=== PATIENT | female | born 1970 | race Caucasian/White ===

== ENCOUNTER 2017-05-08 09:10 | Emergency (ER) | payer OTHER ==
[~2017-05-08] VITALS: Ht 5451.6 cm; Wt 90.4 kg
[2017-05-08 10:28] LABS: BASOPHILS % (AUTO) 0.7 % (0-1); EOSINOPHILS # (AUTO) 0.1 X10'3 (0-0.9); EOSINOPHILS % (AUTO) 1.9 % (0-6); HEMATOCRIT 41.1 % (35.0-45.0); HEMOGLOBIN 14.3 g/dl (12.0-16.0); LYMPHOCYTES # (AUTO) 2.4 X10'3 (1.1-4.8); LYMPHOCYTES % (AUTO) 42.7 % (21-51); MEAN CORPUSCULAR HEMOGLOBIN 30.7 PG (27.0-31.0); MEAN CORPUSCULAR HGB CONC 34.8 % (33.0-36.5); MEAN CORPUSCULAR VOLUME 88.1 FL (78-98); MEAN PLATELET VOLUME 8.5 FL (7.4-10.4); MONOCYTES # (AUTO) 0.4 X10'3 (0-0.9); MONOCYTES % (AUTO) 6.9 % (2-12); NEUTROPHILS # (AUTO) 2.7 X10'3 (1.8-7.7); NEUTROPHILS % (AUTO) 47.8 % (42-75); PLATELET COUNT 225 X10'3 (140-440); RED BLOOD COUNT 4.66 X10'6 (4.20-5.60); RED CELL DISTRIBUTION WIDTH 16.6 % (11.5-14.5); WHITE BLOOD COUNT 5.6 X10'3 (4.5-11.0)
[2017-05-08 10:50] LABS: ALBUMIN 3.8 G/DL (3.4-5.0); ANION GAP 11 (8-16); BLOOD UREA NITROGEN 14 MG/DL (7-18); BUN/CREATININE RATIO 27.5 (6.6-38.0); CALCIUM 8.8 MG/DL (8.5-10.1); CHLORIDE 109 MMOL/L (99-107); CREATININE 0.51 MG/DL (0.40-0.90); GLUCOSE 80 MG/DL (70-104); POTASSIUM 4.2 MMOL/L (3.5-5.1); SODIUM 149 MMOL/L (135-145); TOTAL CARBON DIOXIDE 28.7 MMOL/L (24-32); eGFR > 90 ML/MIN
[2017-05-08 11:19] LABS: ETHANOL 0.293 GM/DL (0.0-0.010)
[2017-05-08] MEDS ORDERED: HYDR-3686 PO (11:52)
[2017-05-08] MEDS ORDERED: LEVO100T9 PO (11:53)
[2017-05-08] MEDS ORDERED: NAPR-56 PO (11:55)
[2017-05-08] MEDS ORDERED: PARO20TA6 PO (11:56)
[2017-05-08] MEDS ORDERED: OMEP40CA37 PO (11:59)
[2017-05-08] MEDS ORDERED: MONT10TA24 PO (12:04)
[2017-05-08] MEDS ORDERED: ACET-812 PO (12:04)
[2017-05-08] MEDS ORDERED: CARB100T7 PO (12:05)
[2017-05-08] MEDS ORDERED: CEPH500C2 PO (12:06)
[2017-05-08] MEDS ORDERED: POTA2TAB17 (12:07)
[2017-05-08] MEDS ORDERED: CHOL5000 PO (12:08)
[2017-05-08] MEDS ORDERED: NAPH15DR8 (12:09)
[2017-05-08 13:14] LABS: CLARITY,URINE SLIGHTLY CLOUDY (Clear); COLOR,URINE STRAW (Yellow); GLUCOSE, URINE NEGATIVE (Neg); KETONES,URINE NEGATIVE (Neg); LEUKOCYTE ESTERASE ,URINE NEGATIVE (Neg); NITRITES, URINE NEGATIVE (Neg); OCCULT BLOOD,URINE NEGATIVE (Neg); PH,URINE 6.5 (4.8-8.0); PROTEIN,URINE NEGATIVE (Neg); URINE HCG NEGATIVE (NEG); UROBILINOGEN,URINE 0.2 E.U/dL (0.2-1.0)
[2017-05-08 13:17] LABS: UA COLLECTION TYPE CLN CATCH MIDSTREAM
[2017-05-08 13:31] LABS: URINE AMPHETAMINE SCREEN NEGATIVE (Neg); URINE BARBITUATE SCREEN NEGATIVE (Neg); URINE BENZODIAZEPINES SCREEN NEGATIVE (Neg); URINE CANNABINOID SCREEN NEGATIVE (Neg); URINE COCAINE SCREEN NEGATIVE (Neg); URINE METHADONE SCREEN NEGATIVE (Neg); URINE OPIATE SCREEN NEGATIVE (Neg); URINE PHENCYCLIDINE SCREEN NEGATIVE (Neg)
[2017-05-08 13:37] LABS: BACTERIA,URINE FEW /HPF (Neg); RBC,URINE 0-2 /HPF (0-2); SQUAMOUS EPITHELIAL CELL,UR MODERATE /LPF (FEW); WBC,URINE 0-4 /HPF (0-4)
[2017-05-08] MEDS ORDERED: ondansetron 4mg rapidly disintigrating tab PO ONE (17:30)
[2017-05-08] MEDS ORDERED: folic acid 1mg tablet PO ONE (17:45)
[2017-05-08] MEDS ORDERED: thiamine 100mg tablet PO SCH (17:45)
[2017-05-08] MEDS: LORazepam 1 MG tablet PO PRN (18:31)
[2017-05-08] MEDS ORDERED: PARoxetine 20mg tablet PO SCH (21:00)
[2017-05-08] MEDS ORDERED: carBAMazepine 100mg chewable tablet PO SCH (21:00)
[2017-05-09] MEDS ORDERED: acetaminophen 325mg tablet PO ONE (03:45)
[2017-05-09] MEDS: LORazepam 1 MG tablet PO PRN ×2 (03:59→09:56)
[2017-05-09] MEDS ORDERED: montelukast 10mg tablet PO SCH (08:00)
[2017-05-09] MEDS ORDERED: levoTHYROXINE 100mcg tablet PO SCH (08:00)
[2017-05-09] MEDS ORDERED: PARoxetine 20mg tablet PO SCH (08:26)
[2017-05-09] MEDS ORDERED: carBAMazepine 100mg chewable tablet PO SCH (08:55)
[2017-05-09] MEDS ORDERED: pantoprazole 40mg Tablet.DR PO SCH (09:00)
[2017-05-09] MEDS ORDERED: naproxen 500mg tablet PO SCH (09:00)
[2017-05-09 12:37] VITALS: BP 99/56
[2017-05-09] MEDS ORDERED: acetaminophen 325mg tablet PO SCH (14:00)
== END 2017-05-09 12:39 | disposition home or self-care (01) ==
LOC: ER 09:11
DX: R45.851 Suicidal ideations (principal); F32.9 Major depressive disorder, single episode, unspecified; Z87.11 Personal history of peptic ulcer disease; Z98.890 Other specified postprocedural states; Z79.899 Other long term (current) drug therapy
CPT/HCPCS: 36415; 80048; 80156; 80305; 80320; 81001; 81025; 84443; 85025; 99284; 99285

== ENCOUNTER 2017-05-29 23:28 | Emergency (ER) | payer OTHER ==
[~2017-05-29] VITALS: Ht 165.1 cm; Wt 90.0 kg
[~2017-05-29 23:28] MED LIST: ACET-812 PO; CARB100T7 PO; CEPH500C2 PO; CHOL5000 PO; HYDR-3686 PO; LEVO100T9 PO; MONT10TA24 PO; NAPH15DR8; NAPR-56 PO; OMEP40CA37 PO; PARO20TA6 PO; POTA2TAB17
[2017-05-30] LABS: BASOPHILS % (AUTO) 0.3 % (0-1); EOSINOPHILS # (AUTO) 0.2 X10'3 (0-0.9); EOSINOPHILS % (AUTO) 2.2 % (0-6); HEMATOCRIT 40.9 % (35.0-45.0); HEMOGLOBIN 14.1 g/dl (12.0-16.0); LYMPHOCYTES % (AUTO) 40.7 % (21-51); MEAN CORPUSCULAR HEMOGLOBIN 30.2 PG (27.0-31.0); MEAN CORPUSCULAR HGB CONC 34.4 % (33.0-36.5); MEAN CORPUSCULAR VOLUME 87.7 FL (78-98); MEAN PLATELET VOLUME 8.9 FL (7.4-10.4); MONOCYTES # (AUTO) 0.5 X10'3 (0-0.9); MONOCYTES % (AUTO) 6.7 % (2-12); NEUTROPHILS # (AUTO) 3.7 X10'3 (1.8-7.7); NEUTROPHILS % (AUTO) 50.1 % (42-75); PLATELET COUNT 205 X10'3 (140-440); RED BLOOD COUNT 4.66 X10'6 (4.20-5.60); RED CELL DISTRIBUTION WIDTH 16.8 % (11.5-14.5); WHITE BLOOD COUNT 7.3 X10'3 (4.5-11.0)
[2017-05-30 00:01] LABS: URINE HCG NEGATIVE (NEG)
[2017-05-30 00:12] LABS: URINE AMPHETAMINE SCREEN NEGATIVE (Neg); URINE BARBITUATE SCREEN NEGATIVE (Neg); URINE BENZODIAZEPINES SCREEN NEGATIVE (Neg); URINE CANNABINOID SCREEN NEGATIVE (Neg); URINE COCAINE SCREEN NEGATIVE (Neg); URINE METHADONE SCREEN NEGATIVE (Neg); URINE OPIATE SCREEN NEGATIVE (Neg); URINE PHENCYCLIDINE SCREEN NEGATIVE (Neg)
[2017-05-30 00:13] LABS: ALANINE AMINOTRANSFERASE 23 U/L (12-78); ALBUMIN/GLOBULIN RATIO 1.1 (1.1-1.5); ALKALINE PHOSPHATASE 92 IU/L (46-116); ANION GAP 11 (8-16); ASPARTATE AMINO TRANSFERASE 17 U/L (10-37); BILIRUBIN,TOTAL 0.2 MG/DL (0.1-1.0); BLOOD UREA NITROGEN 12 MG/DL (7-18); BUN/CREATININE RATIO 19.7 (6.6-38.0); CALCIUM 9.2 MG/DL (8.5-10.1); CHLORIDE 105 MMOL/L (99-107); CREATININE 0.61 MG/DL (0.40-0.90); ETHANOL 0.159 GM/DL (0.0-0.010); GLUCOSE 98 MG/DL (70-104); POTASSIUM 4.2 MMOL/L (3.5-5.1); SODIUM 141 MMOL/L (135-145); TOTAL CARBON DIOXIDE 25.2 MMOL/L (24-32); TOTAL PROTEIN 7.8 G/DL (6.4-8.2); eGFR > 90 ML/MIN
[2017-05-30] MEDS ORDERED: naphazoline/pheniramine eye 1 DROP BOTTLE EACHEYE PRN (02:05)
[2017-05-30] MEDS ORDERED: acetaminophen 325mg tablet PO PRN (06:35)
[2017-05-30] MEDS ORDERED: naproxen 500mg tablet PO SCH (07:30)
[2017-05-30] MEDS: pantoprazole 40mg Tablet.DR PO SCH ×2 (07:58→12:18)
[2017-05-30] MEDS ORDERED: montelukast 10mg tablet PO SCH (08:00)
[2017-05-30] MEDS ORDERED: carBAMazepine 100mg chewable tablet PO SCH (08:00)
[2017-05-30] MEDS ORDERED: PARoxetine 20mg tablet PO SCH (08:00)
[2017-05-30] MEDS ORDERED: non-formulary drug (Acetaminophen (Tylenol Extra Strength) 2 TABLET) PO SCH (08:00)
[2017-05-30] MEDS ORDERED: levoTHYROXINE 100mcg tablet PO SCH (08:00)
[2017-05-30] MEDS ORDERED: hydrOXYzine 10 MG tablet PO PRN (08:10)
[2017-05-30] MEDS ORDERED: ondansetron 4mg rapidly disintigrating tab PO PRN (08:10)
[2017-05-30 14:08] VITALS: BP 97/53
[2017-05-30] MEDS ORDERED: hydrOXYzine 25 MG tablet PO SCH (21:00)
== END 2017-05-30 12:45 | disposition home or self-care (01) ==
LOC: ER 23:29
DX: F32.9 Major depressive disorder, single episode, unspecified (principal); F10.129 Alcohol abuse with intoxication, unspecified; Z98.890 Other specified postprocedural states; Z79.899 Other long term (current) drug therapy
CPT/HCPCS: 36415; 80053; 80305; 80320; 81025; 85025; 99285

== ENCOUNTER 2019-01-05 17:21 | Emergency (ER) | payer MEDICAID ==
[~2019-01-05] VITALS: Ht 165.1 cm; Wt 68.0 kg
[~2019-01-05 17:21] MED LIST changes: -CEPH500C2 PO; -CHOL5000 PO; +OMEP40CA13 PO; -OMEP40CA37 PO; -POTA2TAB17
[2019-01-05] MEDS ORDERED: normal saline 1000ML IV soln IV ONE (17:30)
[2019-01-05] MEDS ORDERED: LORazepam 2 mg/ml vial IV ONE (17:30)
[2019-01-05] MEDS ORDERED: thiamine 100mg/ml 2ml inj. IV ONE (17:35)
[2019-01-05] MEDS ORDERED: folic acid 1mg/0.2ml inj IV ONE (17:35)
[2019-01-05 18:10] LABS: ALANINE AMINOTRANSFERASE 24 U/L (12-78); ALBUMIN/GLOBULIN RATIO 0.9 (1.1-1.5); ALKALINE PHOSPHATASE 103 IU/L (46-116); ANION GAP 9 (8-16); ASPARTATE AMINO TRANSFERASE 34 U/L (10-37); BILIRUBIN,TOTAL 0.6 MG/DL (0.1-1.0); BLOOD UREA NITROGEN 18 MG/DL (7-18); BUN/CREATININE RATIO 20.5 (6.6-38.0); CALCIUM 9.5 MG/DL (8.5-10.1); CHLORIDE 94 MMOL/L (99-107); CREATININE 0.88 MG/DL (0.40-0.90); GLUCOSE 100 MG/DL (70-104); SODIUM 139 MMOL/L (135-145); TOTAL CARBON DIOXIDE 36.4 MMOL/L (24-32); TOTAL PROTEIN 6.4 G/DL (6.4-8.2); eGFR 69 ML/MIN
[2019-01-05 18:12] LABS: POTASSIUM 2.8 MMOL/L (3.5-5.1)
[2019-01-05 18:13] LABS: ETHANOL < 0.010 GM/DL (0.0-0.010)
[2019-01-05] MEDS ORDERED: potassium Cl 20 mEq SR tablet PO STA (18:19)
[2019-01-05] MEDS ORDERED: magnesium 2GM in 50ml NS 50 ML IV ONE (18:20)
[2019-01-05 18:32] LABS: BASOPHILS % (AUTO) 0.6 % (0-1); EOSINOPHILS % (AUTO) 0.4 % (0-6); LYMPHOCYTES # (AUTO) 1.3 X10'3 (1.1-4.8); LYMPHOCYTES % (AUTO) 38.4 % (21-51); MEAN CORPUSCULAR HEMOGLOBIN 34.7 PG (27.0-31.0); MEAN CORPUSCULAR HGB CONC 35.1 g/dL (33.0-36.5); MEAN CORPUSCULAR VOLUME 98.8 FL (78-98); MEAN PLATELET VOLUME 8.7 FL (7.4-10.4); MONOCYTES # (AUTO) 0.9 X10'3 (0-0.9); NEUTROPHILS # (AUTO) 1.1 X10'3 (1.8-7.7); NEUTROPHILS % (AUTO) 33.6 % (42-75); PLATELET COUNT 228 X10'3 (140-440); RED BLOOD COUNT 3.75 X10'6 (4.20-5.60); RED CELL DISTRIBUTION WIDTH 15.9 % (11.5-14.5); WHITE BLOOD COUNT 3.4 X10'3 (4.5-11.0)
[2019-01-05 19:10] LABS: TOTAL CELLS COUNTED 100
[2019-01-05 19:11] LABS: STOMATOCYTES FEW
[2019-01-05 19:12] LABS: GIANT PLATELET FEW; POLYCHROMASIA 1+
[2019-01-05] MEDS ORDERED: LORA-269 PO (19:19)
[2019-01-05] MEDS ORDERED: GABA300C PO (19:19)
--- NOTE | 2019-01-05 19:29 | NUR ---
Pt's magnesium is infusing at this time. Pt reports pain is unchanged and is asking for something to treat her dizziness.
--- NOTE | 2019-01-05 19:58 | NUR ---
Break RN: Checked on patient, Pt states she is still not feeling well. Pt states she continues to be dizzy. Pt had low BP while resting on her side on the gurney. Pt moved to supine position and BP re-taken. Pt BP was 107/50 in supine position. Provider informed of patient condition and order obtained to bolus Pt with another liter of NS. Mag infusion still in process.
[2019-01-05 20:06] LABS: PLATELET ESTIMATE NORMAL
[2019-01-05] MEDS ORDERED: normal saline 1000ml 1,000 ML IV ONE (20:55)
--- NOTE | 2019-01-05 21:49 | NUR ---
Attempted to get the patient to sit up and food offered in preparation for discharge. Pt stated "I can't be discharged! I can't walk and that is why I am here." Pt explained the provider feels she is stable for discharge to home. She asked if she can receive another bag of IV fluids.
[2019-01-05] MEDS ORDERED: normal saline 1000ml 1,000 ML IVB ONE (22:08)
--- NOTE | 2019-01-05 22:40 | NUR ---
Pt's blood pressure remains low after a fourth liter of NSS infusion bolus. Pt reports bilateral side pain that is 9/10 and has attempted to void but reports unable to provide urine.
[2019-01-05 22:42] VITALS: BP 99/61
--- NOTE | 2019-01-05 22:49 | NUR ---
phoned sunday [employer] for pt . PT STATES SHE WOULD LIKE TO GO TO [facility]. [facility] ETA [id number]
--- NOTE | 2019-01-05 23:04 | NUR ---
Pt sitting upright on the gurney. Pt given food, weather appropriate clothing and patient has shoes and warm socks.
== END 2019-01-05 23:09 | disposition home or self-care (01) ==
LOC: ER 17:22
DX: F10.239 Alcohol dependence with withdrawal, unspecified (principal); E86.0 Dehydration; E87.6 Hypokalemia; R19.7 Diarrhea, unspecified; R11.2 Nausea with vomiting, unspecified; R42 Dizziness and giddiness; R53.1 Weakness; R25.1 Tremor, unspecified; R10.84 Generalized abdominal pain; F32.9 Major depressive disorder, single episode, unspecified; F17.200 Nicotine dependence, unspecified, uncomplicated; Z87.11 Personal history of peptic ulcer disease; Z98.890 Other specified postprocedural states; Z79.899 Other long term (current) drug therapy; Y90.9 Presence of alcohol in blood, level not specified
CPT/HCPCS: 36415; 80053; 80320; 85025; 85610; 93005; 96361; 96365; 96366; 96375; 99284; J2060; J3411; J3475; J3490; J7030